=== PATIENT | female | born 1945 | race Caucasian/White ===

== ENCOUNTER 2024-06-30 08:10 | Day surgery (SDC) | payer OTHER ==
[2024-06-30] VITALS (7 sets, daily range): BP systolic 141–171; BP diastolic 66–81; PULSE 60–73; RESP 12–22; O2SAT 94–99
[~2024-06-30] VITALS: Ht 165.1 cm; Wt 67.6 kg
[~2024-06-30 08:10] MED LIST: ALEN70TA74 PO; ATOR40TA52 PO
[2024-06-30] MEDS ORDERED: fentaNYL CITRATE 100 MCG/2 ML VL ONE (09:28)
[2024-06-30] MEDS ORDERED: VERAPAMIL 2.5MG/ML INJ 2ML VIAL IV ONE (09:28)
[2024-06-30] MEDS ORDERED: ANGIOMAX 250 MG VIAL IV ONE (09:28)
[2024-06-30] MEDS ORDERED: MIDAZOLAM HCL 2MG/2ML 2ml VIAL (1mg/ml) ONE (09:28)
[2024-06-30] MEDS ORDERED: HEPARIN SODIUM (PORCINE) 5000 UNITS/ML 1ML VIAL ONE (09:28)
[2024-06-30] MEDS ORDERED: SODIUM CHL 0.9% 0 ML ONE (09:29)
[2024-06-30] MEDS ORDERED: LIDOCAINE 2%HCL (LOCAL ANESTH.) INJ 20ML MDV ONE (09:29)
[2024-06-30] MEDS ORDERED: IODIXANOL 320MG/ML 100ML BTL IV ONE ×2 (09:42→09:48)
[2024-06-30] MEDS ORDERED: NITROGLYCERIN 0.4MG/DOSE SPRAY 4.9GM ONE (10:07)
[2024-06-30] MEDS: ACETAMINOPHEN 500 MG TAB or CAP PO ONE (10:53)
--- NOTE | 2024-06-30 10:56 | DVHOP ---
DATE OF SURGERY: 06/30/2024 PROCEDURES PERFORMED: Left heart catheterization, bilateral cine coronary angiography, left ventriculography. INDICATION: Chest pain, abnormal stress test. COMPLICATIONS: No complications. DESCRIPTION OF PROCEDURE: Prior local anesthesia with 2% lidocaine to the right wrist and full informed consent obtained, the patient was prepped and draped in the usual fashion followed by placement of a 6-Fijian sheath into the radial artery and a Billy catheter to perform right and left coronary cannulations and ventriculography without complications. HEMODYNAMICS: Aortic blood pressure was 110/70, end-diastolic pressure was 5 without a gradient across the aortic valve on pullback. CORONARY ANATOMY: RCA is a large vessel with no significant stenosis in its proximal, mid or distal segments. PDA and posterolateral branches are normal. Mild plaquing noted. Left main is large and normal. Left anterior descending is a medium caliber vessel with a 20%-30% stenosis proximally. A 20%-30% stenosis at its midsection. The mid and distal segments are otherwise free of significant disease as are the diagonals and septals. Circumflex free of significant disease. Ventriculography in the JOHNSON projection shows an EF of 65%. IMPRESSION: Normal left ventricular end diastolic pressure at rest, normal ejection fraction, no significant coronary artery disease. RECOMMENDATIONS: Medical therapy is warranted. Continue with risk factor modification. MD JE Koroma/ROBERT/JAQUAN TID: [id number] RECEIPT: [id number]
== END 2024-06-30 13:19 | disposition home or self-care (01) ==
LOC: CATH 08:10
PROVIDERS: ATTEND Internal Medicine
DX: R94.39 Abnormal result of other cardiovascular function study (principal); I10 Essential (primary) hypertension; E78.00 Pure hypercholesterolemia, unspecified; M81.0 Age-related osteoporosis without current pathological fracture; Z82.49 Family history of ischemic heart disease and other diseases of the circulatory system; Z80.9 Family history of malignant neoplasm, unspecified; Z79.899 Other long term (current) drug therapy; Z98.890 Other specified postprocedural states
CPT/HCPCS: 93458; C1887; C1894; J1644; J2250; J3010; Q9967; 99152